=== PATIENT | female | born 1965 | race Caucasian/White ===

== ENCOUNTER 2021-02-01 09:33 | Emergency (ER) | payer SELFPAY ==
--- NOTE | ~2021-02-01 | CT_ITS ---
EXAMINATION: CT brain wo con DATE: 02/01/2021 10:57 INDICATION: Altered mental status TECHNIQUE: Computed tomography (CT) of the head was performed without intravenous contrast. Sagittal and coronal reconstructions were performed. The mA was adjusted according to patient size. Iterative reconstruction technique was employed. The dose-length product was 605.33 mGy-cm. COMPARISON: head CT dated 06/22/2015 FINDINGS: No acute intracranial hemorrhage, acute infarction or abnormal extra axial fluid collection. There is minimal scattered white matter hypoattenuation consistent with chronic small vessel ischemic disease . Ventricles are normal and symmetric. No mass/mass effect. Mild mucosal thickening the inferior asp ect of the bilateral maxillary sinuses. The orbits and mastoid air cells are normal. IMPRESSION: 1. No acute intracranial process. Reviewed, dictated and finalized at location A.
--- NOTE | ~2021-02-01 | XR_ITS ---
EXAMINATION: XR humerus RT DATE: 02/01/2021 10:11 INDICATION: Right upper arm pain post fall TECHNIQUE: AP and lateral views of the right humerus were obtained on overlapping proximal and distal images. COMPARISON: None. FINDINGS: There is approximately 4 mm anterior displacement of a mildly comminuted fractures at the s urgical neck of the proximal right humerus. No other fractures identified. The joint spaces are poorl y profiled however there appears to be at least mild osteoarthritis at the right elbow and mild to mo derate osteoarthritis at the right acromioclavicular joint. Visualized portions of the right lung are clear. IMPRESSION: 1. 1 part fracture of the surgical neck of the proximal right humerus. Reviewed, dictated and finalized at location A.
[2021-02-01 09:40] VITALS: BP 93/59; PULSE 66; RESP 17; TEMP 36.7; O2SAT 100
--- NOTE | 2021-02-01 10:13 | ECG_ITS ---
Measurements Intervals [place] Rate: 62 P: 64 MA: 157 QRS: 48 QRSD: 104 T: 29 QT: 413 QTc: 419 Interpretive Statements SINUS RHYTHM LOW QRS VOLTAGE IN PRECORDIAL LEADS INCOMPLETE RIGHT BUNDLE BRANCH BLOCK BORDERLINE ECG Electronically Signed On 02-02-2021 12:19:26 CDT by Rashaun Alexander D.O.
[2021-02-01] MEDS: SODIUM CHLORIDE 0.9% IV 1,000 ML 999 ML IV CONT (10:25)
[2021-02-01] MEDS: MORPHINE SULFATE (*CRX) 2 MG/ML INJ IV PUSH (10:26)
[2021-02-01 10:30] VITALS: BP 115/75
[2021-02-01 10:36] LABS: Basophils Absolute Auto 0.02 K/mm3 (0.00-0.10); Basophils Percent Auto 0.3 % (0.0-1.0); Eosinophils Absolute Auto 0.07 K/mm3 (0.02-0.50); Eosinophils Percent Auto 1.1 % (1.0-6.0); Hematocrit 41.7 % (35.0-49.0); Hemoglobin 13.3 g/dL (12.0-15.0); Immature Granulocyte Absolute 0.01 K/mm3 (0.00-0.00); Immature Granulocyte Percent A 0.2 % (0.0-0.0); Lymphocytes Absolute Auto 1.98 K/mm3 (1.10-4.50); Lymphocytes Percent Auto 30.5 % (18.0-42.0); Mean Corpuscular HGB Conc 31.9 g/dL (32.0-36.0); Mean Corpuscular Hemoglobin 31.4 pg (27.0-31.0); Mean Corpuscular Volume 98.3 fL (78.0-102.0); Mean Platelet Volume 9.8 fl (9.2-11.8); Monocytes Absolute Auto 0.43 K/mm3 (0.10-0.90); Monocytes Percent Auto 6.6 % (2.0-11.0); Neutrophils Percent Auto 61.3 % (50.0-70.0); Platelet Count Result 178 K/mm3 (150-420); Red Blood Count 4.24 M/mm3 (4.20-5.40); Red Cell Distribution Width 12.8 % (11.6-14.4); White Blood Count 6.5 K/mm3 (4.8-10.8)
[2021-02-01 10:54] LABS: Lactic Acid Reflex 1.4 mmol/L (0.4-2.0)
[2021-02-01 11:00] LABS: Alanine Aminotransferase 24 U/L (14-59); Albumin Level 3.5 g/dL (3.4-5.0); Alkaline Phosphatase 105 U/L (46-116); Ammonia 30 umol/L (11-32); Anion Gap 9 mmol/L (8-16); Aspartate Amino Transferase 16 U/L (15-37); Bilirubin,Total 0.3 mg/dL (0.00-1.00); Blood Urea Nitrogen 14 mg/dL (7-18); Calcium 8.1 mg/dL (8.5-10.1); Carbon Dioxide 29 mmol/L (21-32); Chloride 106 mmol/L (98-108); Creatine Kinase 52 U/L (26-192); Estimated Glomerular Filt Rate > 60; Glucose 110 mg/dL (70-99); Osmolality Calculated 299 mOsm/kg (285-295); Potassium 4.5 mmol/L (3.5-5.1); Sodium 144 mmol/L (136-145); Thyroid Stimulating Hormone 2.82 uIU/mL (0.36-3.74); Total Protein 6.8 g/dL (6.4-8.2)
[2021-02-01 11:02] LABS: Troponin I < 4.0 ng/L (0.00-60.4)
--- NOTE | 2021-02-01 11:22 | ED.FALL ---
HPI - Fall General Chief Complaint: Fall Stated Complaint: R arm pain after fall Source: patient and family Mode of arrival: wheelchair Limitations: no limitations History of Present Illness HPI Narrative: this is a 55-year-old female with some history of seizures, had a fall earlier this this morning after she was walking to [employer] and tripped injuring her right shoulder, has pain with decreased range of motion secondary to pain and mild swelling. Patient denies any seizure activity, no bowel or bladder dysfunction, there is currently no fever chills no chest pain no shortness of breath no dysuria or hematuria. complaint: fall Onset (ago): hour(s) Fall from: standing Fall witnessed: no Place fall occurred: street Loss of consciousness: none Prolonged down time: no Symptoms prior to fall: none Context: tripped/slipped Location of injury - extremities: Right: shoulder ( decreased range of motion secondary to pain) Related Data Home Medications Medication Instructions Recorded Confirmed phenobarbital 129.6 mg PO HS 02/01/21 02/01/21 Allergies Allergy/AdvReac Type Severity Reaction Status Date / Time No Known Allergies Allergy Verified 11/14/19 12:47 Review of Systems Review of Systems: All systems reviewed & are unremarkable except as noted in HPI and below PMFSH Past Medical History Medical History (Updated 02/01/21 @ 11:30 by Domingo Huston MD) Humeral surgical neck fracture Seizures Social History Social History Smoking status: Never smoker Exam Const: General: no acute distress and alert Orientation/consciousness: patient oriented x3 HENMT: Head: normal to inspection Eyes: Conjunctivae: conjunctivae normal Pupils: Equal, round and reactive pupils present EOM: EOMs intact bilaterally Neck: Neck: normal visual inspection, no lymphadenopathy and no meningeal signs Chest: Chest palpation & inspection: normal inspection of the chest Resp: Effort & Inspection: normal respiratory effort Auscultation: clear to auscultation bilaterally Cardio: Rate: regular rate Rhythm: regular rhythm GI: GI Palp: Yes Soft to palpation Percussion: Yes normal to percussion : General: Yes no CVA tenderness Urinary Catheter: Urinary Catheter: patent and draining Skin: General skin exam: normal color Rashes: no rashes Neuro: General: patient oriented x3, moves all extremities and no meningeal signs Extrem: Other: pain and tenderness some right shoulder area has a strong brisk radial pulse on the right with no neurological deficits Psych: Mental Status: mental status grossly normal Affect: normal affect Attitude: cooperative Course Course Emergency Course: patient received pain medication resting comfortably, advised to follow-up with her primary care physician for referral to Ortho placed in a sling and given pain medication. Vital Signs Vital signs: Vital Signs Temperature 36.7 C 02/01/21 09:40 Pulse Rate 66 02/01/21 09:40 Respiratory Rate 17 02/01/21 09:40 Blood Pressure 93/59 L 02/01/21 09:40 Pulse Oximetry 100 02/01/21 09:40 Temperature 36.7 C 02/01/21 09:40 Pulse Rate 66 02/01/21 09:40 Respiratory Rate 17 02/01/21 09:40 Blood Pressure 93/59 L 02/01/21 09:40 Pulse Oximetry 100 02/01/21 09:40 MDM - Fall Lab Data Result diagrams: 02/01/21 10:13 02/01/21 10:13 Labs: Lab Results 02/01/21 02/01/21 02/01/21 Range/Units 10:13 10:13 10:13 WBC 6.5 (4.8-10.8) K/mm3 RBC 4.24 (4.20-5.40) M/mm3 Hgb 13.3 (12.0-15.0) g/dL Hct 41.7 (35.0-49.0) % MCV 98.3 (78.0-102.0) fL MCH 31.4 H (27.0-31.0) pg MCHC 31.9 L (32.0-36.0) g/dL RDW 12.8 (11.6-14.4) % Plt Count 178 (150-420) K/mm3 MPV 9.8 (9.2-11.8) fl Immature Gran % (Auto) 0.2 H (0.0-0.0) % Neut % (Auto) 61.3 (50.0-70.0) % Lymph % (Auto) 30.5 (18.0-42.
[2021-02-01 11:46] LABS: Add Urine Microscopic? YES; Appearance Urine Clear (Clear); Bilirubin Urine Negative (Negative); Blood Urine Negative (Negative); Color Urine Light Yellow (Yellow); Glucose Urine UA Negative (Negative); Ketones Urine 1+ (Negative); Leukocyte Esterase Ur Negative (Negative); Nitrate Urine Negative (Negative); Protein Urine Negative (Negative); RBC Urine None seen /hpf (0-2); Squamous Epithelial Cell Urine Few /hpf (Few); Urobilinogen Urine 0.2 mg/dL (0.2-1.0); WBC Urine None seen /hpf (0-3); pH Urine 6.5 (5.0-8.0)
[2021-02-01 11:47] LABS: Bacteria Urine 1+ /hpf; Mucus Urine Few /lpf
[2021-02-01 11:59] VITALS: BP 115/75
== END 2021-02-01 12:00 | disposition home or self-care (01) ==
PROVIDERS: Emergency Provider Emergency Medicine; PCP Nurse Practitioner Family
DX: S42.211A Unspecified displaced fracture of surgical neck of right humerus, initial encounter for closed fracture (principal); W01.0XXA Fall on same level from slipping, tripping and stumbling without subsequent striking against object, initial encounter
CPT/HCPCS: 36415; 70450; 73060; 80053; 81001; 82140; 82550; 83605; 84443; 84484; 85025; 93005; 96361; 96374; 99283; 99284; A4565; J2270; J7030

== ENCOUNTER 2021-02-17 18:20 | Outpatient (CLI) | payer SELFPAY ==
--- NOTE | ~2021-02-17 | XR_ITS ---
EXAMINATION: XR shoulder RT min 2V DATE: 02/17/2021 18:51 INDICATION: Subacute proximal right humeral fracture. TECHNIQUE: AP internally and externally rotated, AP oblique externally rotated and transscapular Y vi ews of the right shoulder were obtained. COMPARISON: Right shoulder radiographs dated 02/10/2021 FINDINGS: Again seen is a comminuted fracture involving the surgical neck of the proximal right humerus with 1. 7 cm anterior displacement. Right humeral head remains normally centered of the glenoid. Mild right a cromioclavicular and glenohumeral osteoarthritis. Visualized portions of the lungs are clear. IMPRESSION: Comminuted two-part fracture to surgical neck of the proximal right humerus with increased now 1.7 cm anterior displacement. Reviewed, dictated and finalized at location A. IMPRESSION: Comminuted two-part fracture to surgical neck of the proximal right humerus wit h increased now 1.7 cm anterior displacement.
[2021-02-17 19:19] LABS: Phenytoin Dilantin 10 ug/mL (10-20)
== END 2021-02-17 18:21 | disposition home or self-care (01) ==
LOC: CHSLAB 18:22
PROVIDERS: PCP Nurse Practitioner Family; Visit Provider Orthopaedic Surgery
DX: S42.291A Other displaced fracture of upper end of right humerus, initial encounter for closed fracture (principal)
CPT/HCPCS: 36415; 73030; 80184; 80185

== ENCOUNTER 2023-06-05 11:24 | Emergency (ER) | payer SELFPAY ==
[2023-06-05] VITALS (14 sets, daily range): BP systolic 119–148; BP diastolic 76–97; PULSE 76–79; RESP 16–17; TEMP 36.6–36.7; O2SAT 97–100
--- NOTE | ~2023-06-05 | CT_ITS ---
EXAMINATION: CT brain wo con DATE: 06/05/2023 12:26 INDICATION: Fall, laceration to vertex of head. Injury of seizures. Generalized neck pain. TECHNIQUE: Computed tomography (CT) of the head was performed without intravenous contrast. The mA wa s adjusted according to patient size. Iterative reconstruction technique was employed. Exam dose: 68 1.00 mGy-cm total exam DLP. COMPARISON: 02/01/2021 CT brain FINDINGS: No intracranial mass lesion or hemorrhage or cerebrovascular accident. No midline shift or mass effect. Normal ventricular size. No subdural or epidural hematoma. Bilateral carotid siphon internal carotid artery calcifications. Incidentally noted is evidence of periapical abscess in the upper posterior left molar. There is mini mal mucoperiosteal thickening in the lower maxillary sinuses. The paranasal sinuses and mastoid air c ells are otherwise unremarkable. No fracture or bone destruction of the cranial vault is detected. IMPRESSION: No skull fracture or acute intracranial finding Reviewed, dictated and finalized at [facility]. Reviewed, dictated and finalized at location A. S SORTER
--- NOTE | ~2023-06-05 | CT_ITS ---
EXAMINATION: CT cervical spine wo con DATE: 06/05/2023 12:26 INDICATION: Fall. Generalized neck pain. TECHNIQUE: Computed tomography (CT) of the cervical spine was performed without intravenous contrast. Automated exposure control and iterative reconstruction technique were employed. Exam dose: 152.97 mGy-cm total exam DLP. COMPARISON: None FINDINGS: C1 and C2 are normally aligned and the odontoid process is intact. No fracture or dislocati on or locked facet or prevertebral soft tissue swelling. There is mild loss of height at C4-5 interspace. Remaining cervical interspaces are relatively well p reserved. There are some prominent anterior spurring of the mid and particularly lower cervical spine . IMPRESSION: Mild cervical spondylosis; no fracture or dislocation or locked facet Reviewed, dictated and finalized at [facility]. Reviewed, dictated and finalized at location A. UNTS MANAGER IMPRESSION: Mild cervical spondylosis; no fracture or dislocation or locked fa cet
--- NOTE | 2023-06-05 13:06 | PC.NURSE ---
ERP cleared patient for C-collar removal. Patient ambulatory to bathroom with steady gait.
--- NOTE | 2023-06-05 13:17 | ED.HEATRA ---
HPI - Head Injury General Chief complaint: Head Injury Stated complaint: head lac, fall Time Seen by Provider: 06/05/23 11:40 Source: patient and EMS Mode of arrival: EMS Limitations: no limitations History of Present Illness HPI Narrative: this is 57-year-old female with a history of seizure disorder that had a fall home striking the back of her head on a concrete prerna patient lost her balance, has a gaping laceration occipital scalp area on the right with no loss of consciousness no headache no neck pain, no nausea or vomiting no other injuries noted. Complaint: head injury Onset (ago): hour(s) Arrival Conditions: C-spine immobilization present Mechanism of Injury: fall Place: home Loss of Consciousness: no Location of injury: occipital Severity: mild Severity scale (1-10): 3 Radiation: none Other Injuries: none Related Data Home Medications Medication Instructions Recorded Confirmed phenobarbital 64.8 mg tablet 129.6 mg PO HS 02/01/21 06/05/23 phenytoin sodium extended 100 mg 100 mg PO TID 02/10/21 06/05/23 capsule (Dilantin Extended) Allergies Allergy/AdvReac Type Severity Reaction Status Date / Time No Known Allergies Allergy Verified 06/05/23 11:28 Review of Systems Review of Systems: All systems reviewed & are unremarkable except as noted in HPI and below PMFSH Past Medical History Medical History 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 Humeral surgical neck fracture Seizures Family History Family History Unknown Cerebrovascular accident Cancer Heart disease Diabetes mellitus Hypertension High cholesterol Obesity Exam Const: General: healthy appearing and no acute distress Nutritional Appearance: well nourished Orientation/consciousness: patient oriented x3 Limitations: no limitations HENMT: Head: normal to inspection Eyes: Conjunctivae: conjunctivae normal Pupils: Equal, round and reactive pupils present EOM: EOMs intact bilaterally Direct Ophthalmoscopy: no photophobia Neck: Neck: normal visual inspection, no lymphadenopathy and no meningeal signs Chest: Chest palpation & inspection: normal inspection of the chest Resp: Effort & Inspection: normal respiratory effort Auscultation: clear to auscultation bilaterally Cardio: Rate: regular rate Rhythm: regular rhythm GI: GI Palp: Yes Soft to palpation Auscultation: normal bowel sounds Back/Spine/Pelvis: Back: no CVA tenderness Skin: Wounds: wounds noted Other: 3 Cm gaping laceration right posterior occipital scalp. Neuro: General: patient oriented x3, moves all extremities, no meningeal signs and no focal motor deficits Extrem: General: normal to inspection and no clubbing, cyanosis or edema Psych: Mental Status: mental status grossly normal Course Course Emergency Course: Patient had a CT scan of the brain and cervical spine was in a cervical collar, CT scans were reviewed and with no acute abnormalities C-collar was removed patient was updated with her tetanus vaccine and 5 denzel were placed the laceration site occipital scalp. Vital Signs Vital signs: Vital Signs Temperature 36.7 C 06/05/23 11:29 Pulse Rate 78 06/05/23 11:29 Respiratory Rate 17 06/05/23 11:29 Blood Pressure 119/87 06/05/23 11:29 Pulse Oximetry 99 06/05/23 11:29 Oxygen Delivery Room Air 06/05/23 11:29 Temperature 36.7 C 06/05/23 11:29 Pulse Rate 78 06/05/23 11:29 Respiratory Rate 17 06/05/23 11:29 Blood Pressure 119/87 06/05/23 11:29 Pulse Oximetry 99 06/05/23 11:29 Oxygen Delivery Room Air 06/05/23 11:29 Procedures Laceration Laceration 1: Date: 06/05/23 Time: 13:21 Site: scalp Side (If applicable): right Size (cm): 3 Description: linear Pre-repair: wound explored and irrigated ====== Skin Level ======
[2023-06-05] MEDS: TETANUS,DIPHTHERIA,AC PERTUSSIS ADULT 0.5 ML (ADACEL) IM (13:28)
== END 2023-06-05 13:54 | disposition home or self-care (01) ==
PROVIDERS: Emergency Provider Emergency Medicine; PCP Nurse Practitioner Family
DX: S01.01XA Laceration without foreign body of scalp, initial encounter (principal); Z79.899 Other long term (current) drug therapy; Z23 Encounter for immunization; W19.XXXA Unspecified fall, initial encounter
CPT/HCPCS: 12002; 70450; 72125; 90471; 90715; 99284

== ENCOUNTER 2023-11-24 13:13 | Outpatient (CLI) | payer SELFPAY ==
[2023-11-24 13:32] LABS: Basophils Absolute Auto 0.01 K/mm3 (0.00-0.10); Basophils Percent Auto 0.2 % (0.0-1.0); Eosinophils Absolute Auto 0.07 K/mm3 (0.02-0.50); Eosinophils Percent Auto 1.5 % (1.0-6.0); Hematocrit 40.2 % (35.0-49.0); Hemoglobin 13.2 g/dL (12.0-15.0); Immature Granulocyte Absolute 0.02 K/mm3 (0.00-0.00); Immature Granulocyte Percent A 0.4 % (0.0-0.0); Lymphocytes Absolute Auto 2.26 K/mm3 (1.10-4.50); Lymphocytes Percent Auto 47.2 % (18.0-42.0); Mean Corpuscular HGB Conc 32.8 g/dL (32-36); Mean Corpuscular Hemoglobin 29.3 pg (27.0-31.0); Mean Corpuscular Volume 89.3 fL (78.0-102.0); Mean Platelet Volume 9.4 fl (9.2-11.8); Monocytes Absolute Auto 0.38 K/mm3 (0.10-0.90); Monocytes Percent Auto 7.9 % (2.0-11.0); Neutrophils Absolute Auto 2.05 K/mm3 (1.70-7.20); Neutrophils Percent Auto 42.8 % (50.0-70.0); Platelet Count Result 195 K/mm3 (150-420); Red Cell Distribution Width 14.8 % (11.6-14.4); White Blood Count 4.8 K/mm3 (4.8-10.8)
--- NOTE | 2023-11-24 13:35 | ECG_ITS ---
Test Date: 2023-11-24 13:44:06 Measurements Intervals [place] Rate: 64 P: 75 [place]: 154 QRS: 83 QRSD: 135 T: 59 QT: 432 QTc: 446 Interpretive Statements SINUS RHYTHM RIGHT BUNDLE BRANCH BLOCK [120+ ms QRS DURATION, UPRIGHT V1, 40+ ms S IN I/aVL/V4/V5/V6] No previous ECG available for comparison Electronically Signed On 11-25-2023 13:26:58 CDT by Keven Solorio M.D.
[2023-11-24 13:36] LABS: Appearance Urine Sl Cloudy (Clear); Bilirubin Urine Negative (Negative); Blood Urine Negative (Negative); Color Urine Light Yellow (Yellow); Glucose Urine UA Negative (Negative); Ketones Urine Negative (Negative); Leukocyte Esterase Ur 3+ LEU/UL (Negative); Nitrate Urine Negative (Negative); Protein Urine Negative (Negative); Urobilinogen Urine 0.2 mg/dL (0.2-1.0)
[2023-11-24 13:41] LABS: Add Urine Microscopic? YES; RBC Urine 0-2 /hpf (0-2); Squamous Epithelial Cell Urine Moderate /hpf (Few); WBC Urine 21-30 /hpf (0-3)
[2023-11-24 13:42] LABS: Bacteria Urine Trace /hpf; Mucus Urine Moderate /lpf
[2023-11-24 14:21] LABS: Alanine Aminotransferase 22 U/L (14-59); Albumin Level 3.7 g/dL (3.4-5.0); Alkaline Phosphatase 95 U/L (46-116); Anion Gap 6 mmol/L (4-12); Aspartate Amino Transferase 19 U/L (15-37); Bilirubin,Total 0.3 mg/dL (0.00-1.00); Blood Urea Nitrogen 13 mg/dL (7-18); Calcium 8.6 mg/dL (8.5-10.1); Carbon Dioxide 31 mmol/L (21-32); Chloride 105 mmol/L (98-108); Cholesterol 167 mg/dL (0-200); Estimated Glomerular Filt Rate > 60; Glucose 90 mg/dL (70-99); HDL Direct 69 mg/dL (40-60); Iron 99 ug/dL (50-170); LDL Cholesterol Calculated 89 mg/dL (<130); Magnesium 2.2 mg/dL (1.8-2.4); Osmolality Calculated 294 mOsm/kg (285-295); Potassium 4.2 mmol/L (3.5-5.1); Sodium 142 mmol/L (136-145); Thyroid Stimulating Hormone 1.48 uIU/mL (0.36-3.74); Triglycerides 46 mg/dL (0-150)
[2023-11-24 14:26] LABS: Phenytoin Dilantin 32 ug/mL (10-20)
[2023-11-25 12:02] LABS: Vitamin D 25 Hydroxy 47 ng/mL (30-100)
== END 2023-11-24 13:14 | disposition home or self-care (01) ==
PROVIDERS: PCP Nurse Practitioner Family; Visit Provider Nurse Practitioner Family
DX: R56.9 Unspecified convulsions (principal); Z13.6 Encounter for screening for cardiovascular disorders; R42 Dizziness and giddiness; Z79.899 Other long term (current) drug therapy; I45.10 Unspecified right bundle-branch block
CPT/HCPCS: 36415; 80053; 80061; 80184; 80185; 81001; 82306; 83540; 83735; 84439; 84443; 85025; 87086; 87088; 93005

== ENCOUNTER 2023-12-01 06:48 | Outpatient (CLI) | payer SELFPAY ==
[2023-12-01 08:07] LABS: Phenytoin Dilantin 22 ug/mL (10-20)
== END 2023-12-01 06:49 | disposition home or self-care (01) ==
LOC: CHSLAB 06:50
PROVIDERS: PCP Nurse Practitioner Family; Visit Provider Nurse Practitioner Family
DX: R78.89 Finding of other specified substances, not normally found in blood (principal)
CPT/HCPCS: 36415; 80185